=== PATIENT | female | born 1940 | race Caucasian/White ===

== ENCOUNTER 2019-04-05 11:12 | Inpatient (IN) | payer OTHER ==
[~2019-04-05] VITALS: Ht 154.9 cm; Wt 78.5 kg
--- NOTE | 2019-04-05 11:12 | NUR ---
Pt biba [facility] 101 and placed in bed 11.
[2019-04-05 11:18] VITALS: BP 195/85
--- NOTE | 2019-04-05 11:28 | NUR ---
BIBA C/O INTERTTENT PALPITATIONS FOUR DAYS, AND 2 HOURS AGO PT HAD PALPITATION IN [facility]. EKG AT [facility] SHOWED A-FIB, AND THE CENTER CALLED MUD ANALYSIS WELL LOGGING OPERATOR. WHEN THE MUD ANALYSIS WELL LOGGING OPERATOR PRESENTED TO THE SCENE PT TURNED TO NSR. PT IS HYPERTENSIVE WITH NSR AT THIS TIME. PT DENIES SOB, CP, OR DIZZINESS. PT REPORTS HAS NOT SLEPT WELL AND STRESS FOR MONTHS DUE TO TRAVELLING BACK FROM [place]. PATIENT STATES PAIN OF 0/10 AT THIS TIME; VSS; PATIENT POSITIONED FOR COMFORT; HOB ELEVATED; BEDRAILS UP X2; BED DOWN. ER MD MADE AWARE OF PT STATUS.
[2019-04-05] MEDS ORDERED: NACL 0.9% 1,000 ML IV ONE (11:30)
--- NOTE | 2019-04-05 11:49 | NUR ---
electronics engineering technologist at bedside.
[2019-04-05 11:54] LABS: BASOPHILS # (AUTO) 0.1 K/uL (0.00-0.22); BASOPHILS % (AUTO) 1.4 % (0.0-2.0); EOSINOPHILS # (AUTO) 0.1 K/uL (0-0.4); EOSINOPHILS % (AUTO) 1.6 % (0.0-4.0); HEMATOCRIT 40.5 % (36-48); HEMOGLOBIN 13.4 g/dL (12.0-16.0); LYMPHOCYTES # (AUTO) 0.8 K/uL (2.5-16.5); LYMPHOCYTES % (AUTO) 13.2 % (20.5-51.1); MEAN CORPUSCULAR HEMOGLOBIN 31 pg (27-31); MEAN CORPUSCULAR HGB CONC 33 g/dL (33-37); MEAN CORPUSCULAR VOLUME 93.1 fL (80-94); MONOCYTES # (AUTO) 0.4 K/uL (0.8-1.0); MONOCYTES % (AUTO) 7.3 % (1.7-9.3); NEUTROPHILS # (AUTO) 4.6 K/uL (1.8-7.7); NEUTROPHILS % (AUTO) 76.5 % (42.2-75.2); PLATELET COUNT (AUTO) 285 K/uL (140-450); RED BLOOD CELL COUNT(AUTO) 4.35 MIL/uL (4.20-5.40); RED CELL DISTRIBUTION WIDTH 13.1 % (11.6-13.7)
[2019-04-05 12:04] LABS: ANION GAP 16.2 (8-16); CARBON DIOXIDE 24.9 mmol/L (21-32); CHLORIDE 106 mmol/L (98-107); GLUCOSE 98 mg/dL (74-106); POTASSIUM 4.1 mmol/L (3.5-5.1); SODIUM SERUM 143 mmol/L (136-145); UREA NITROGEN, BLOOD 20 mg/dL (7-18)
[2019-04-05 12:08] LABS: PROTHROMBIN TIME 10.2 secs (10.8-13.4)
[2019-04-05 12:19] LABS: ALBUMIN 3.6 g/dL (3.4-5.0); ASPARTATE AMINOTRANSFERASE 20 U/L (15-37); FREE T4 (FREE THYROXINE) 1.34 ng/dL (0.76-1.46); THYROID STIMULATING HORMONE 2.28 uIU/mL (0.34-3.74); TOTAL BILIRUBIN 0.7 mg/dL (0.0-1.0)
[2019-04-05] MEDS ORDERED: SYN.05 PO (12:45)
[2019-04-05] MEDS ORDERED: LISI10TA11 PO (12:47)
[2019-04-05] MEDS ORDERED: ATOR20TA PO (12:48)
[2019-04-05] MEDS ORDERED: LETR2.5T PO (12:49)
[2019-04-05] MEDS ORDERED: ACETAMINOPHEN 325 MG TAB PO PRN (12:50)
[2019-04-05] MEDS ORDERED: MORPHINE SULFATE 2 MG/ML SYR IVP PRN (12:50)
[2019-04-05] MEDS ORDERED: ONDANSETRON 4 MG/2 ML VIAL IM/IVP PRN (12:50)
[2019-04-05] MEDS ORDERED: HYDROcodone/APAP 5/325 MG 1 TAB TAB PO PRN (12:50)
[2019-04-05] MEDS ORDERED: DOCUSATE SODIUM 100 MG GELCAP PO PRN (12:50)
--- NOTE | 2019-04-05 13:04 | NUR ---
Dr. Longoria is evaluating the patient at bedside.
[2019-04-05 13:15] VITALS: BP 161/96
[2019-04-05] MEDS: NACL 0.9% 1,000 ML IV SCH ×2 (13:15→22:46)
--- NOTE | 2019-04-05 13:15 | NUR ---
Received report from ER nurse Jane. Pt is in bed in stable condition. Initial admission process completed. Call light in reach.
--- NOTE | 2019-04-05 13:15 | NUR ---
Patient will be admitted to care of [facility]. Admited to Telemetry. Will go to room 107b. Belongings list completed. Report to INNA Ventura.
[2019-04-05 13:50] LABS: CHOL/HDL RATIO 2.5 (1-4.5); MAGNESIUM 2.1 mg/dL (1.8-2.4); PHOSPHORUS 3.2 mg/dL (2.5-4.9)
[2019-04-05] MEDS ORDERED: METOPROLOL 25 MG TAB PO SCH (14:00)
[2019-04-05] MEDS ORDERED: ALBUTEROL SULFATE/IPRATROPIU 3 ML SOL IH PRN (14:20)
[2019-04-05] MEDS ORDERED: COMMUNICATION ORDER MC PRN (14:45)
--- NOTE | 2019-04-05 15:00 | NUR ---
pt was instructed on giving sputum sample cup is at bedside
[2019-04-05 16:00] VITALS: BP 140/72
--- NOTE | 2019-04-05 16:00 | NUR ---
Pt is in bed instable condition. Family by bedside. Call light in reach.
[2019-04-05] MEDS: LEVOFLOXACIN 750 MG/D5W PREMIX 150 ML IV SCH (17:20)
[2019-04-05 17:55] LABS: BILIRUBIN,URINE NEGATIVE (NEGATIVE); BLOOD, URINE TRACE-L (NEGATIVE); LEUKOCYTE ESTERASE ,URINE TRACE (NEGATIVE); NITRITE, URINE NEGATIVE (NEGATIVE); UGLUCOSE NEGATIVE (NEGATIVE)
--- NOTE | 2019-04-05 19:30 | NUR ---
Shift report given to manufacturing supervisor 2nd shift nurse. Family by bedside. Call light in reach
--- NOTE | 2019-04-05 19:31 | NUR ---
RECD. RESTING IN BED, AWAKE, A/OX4. RESPIRATION EVEN AND UNLABORED. IV OF NS AT 100 ML/HR INFUSING LEFT AC G22. INDEPENDENT, ABLE TO AMBULATE BY HERSELF. PLAN OF CARE FOR THE SHIFT DISCUSSED. VERBALIZED UNDERSTANDING. DENIES CHEST PAIN OR ANY BODY PAINS 0/10. SINUS RHYTHM ON TELE MONITOR.
[2019-04-05 20:00] VITALS: BP 140/63
[2019-04-05 20:13] LABS: APPEARANCE,URINE HAZY (CLEAR)
[2019-04-05] MEDS: CLINDAMYCIN 900 MG in DEXTROSE 5% 100 ML IV SCH (20:27)
--- NOTE | 2019-04-05 21:00 | NUR ---
Patient's Plan of Care was discussed and reviewed with HYDRAULIC JACK MECHANIC: RAFA العراقي
[2019-04-05 21:16] LABS: RBC,URINE 0-5 /HPF (0-5); WBC,URINE 0-5 /HPF (0-5)
[2019-04-05 21:17] LABS: COLOR,URINE STRAW (YELLOW)
[2019-04-05 21:35] VITALS: BP 136/62
[2019-04-05] MEDS: METOPROLOL 25 MG TAB PO SCH (21:35)
--- NOTE | 2019-04-05 21:35 | NUR ---
DUE PO MEDICATIONS GIVEN. BP CHECKED - 136/62, HR - 62. LOPRESSOR 25 MG. PO GIVEN.
[2019-04-05] MEDS: ENOXAPARIN 100 MG/ML SYR SUBQ SCH (21:43)
--- NOTE | 2019-04-05 22:00 | NUR ---
INFORMED PATIENT NEED TO COUGHED OUT PHLEGM FOR SPUTUM TEST. STATED THERE IS NO SPUTUM THAT COMES OUT SHE COUGH.
[2019-04-06] VITALS: BP 121/58
--- NOTE | 2019-04-06 | NUR ---
HR - 51, SINUS ARRHYTHMIA ON TELE MONITOR.
--- NOTE | 2019-04-06 00:56 | NUR ---
HR DROPS TO 42 BUT GOES UP QUICKLY, CHECKED PATIENT, SLEEPING SOUNDLY IN BED. NO APPEARANCE OF DISTRESS NOTED.
--- NOTE | 2019-04-06 02:30 | NUR ---
INFORMED DR. WINSTON PATIENT HR DROPPING DURING SLEEP AND PATIENT STATED SHE DOES NOT TAKE BP MEDICATION DURING THE NIGHT AT HOME.
--- NOTE | 2019-04-06 03:45 | NUR ---
SPECIMEN FOR INFLUENZA A & B SENT TO LAB.
[2019-04-06 04:00] VITALS: BP 159/70
[2019-04-06] MEDS: NACL 0.9% 1,000 ML IV SCH ×2 (04:11→09:15)
[2019-04-06] MEDS: CLINDAMYCIN 900 MG in DEXTROSE 5% 100 ML IV SCH ×3 (04:38→20:18)
[2019-04-06] MEDS: LEVOTHYROXINE 0.05 MG TAB PO SCH (06:37)
--- NOTE | 2019-04-06 06:56 | NUR ---
RESTING COMFORTABLY IN BED, CONDITION REMAIN STABLE. WILL ENDORSE TO AM NURSE FOR CONTINUITY OF CARE.
--- NOTE | 2019-04-06 07:10 | NUR ---
RECEIVED BEDSIDE REPORT FROM BUSINESS MGR NURSE, PT IS AWAKE AND ALERT, NO S/S OF ACUTE DISTRESS OR SOB. NO C/O PAIN. PT ON ROOM AIR, SKIN INTACT. IV SITE L AC 22 G, INFUSING NS 100 ML/HR. PT IS AMBULATORY AND ABLE TO MAKE NEEDS KNOWN. CALL LIGHT IS WITHIN REACH.
[2019-04-06 07:11] LABS: BASOPHILS % (AUTO) 0.5 % (0.0-2.0); EOSINOPHILS # (AUTO) 0.2 K/uL (0-0.4); EOSINOPHILS % (AUTO) 2.7 % (0.0-4.0); HEMATOCRIT 35.6 % (36-48); HEMOGLOBIN 11.9 g/dL (12.0-16.0); LYMPHOCYTES % (AUTO) 16.9 % (20.5-51.1); MEAN CORPUSCULAR HEMOGLOBIN 31 pg (27-31); MEAN CORPUSCULAR HGB CONC 33 g/dL (33-37); MEAN CORPUSCULAR VOLUME 93.1 fL (80-94); MONOCYTES # (AUTO) 0.5 K/uL (0.8-1.0); MONOCYTES % (AUTO) 7.8 % (1.7-9.3); NEUTROPHILS # (AUTO) 4.4 K/uL (1.8-7.7); NEUTROPHILS % (AUTO) 72.1 % (42.2-75.2); PLATELET COUNT (AUTO) 254 K/uL (140-450); RED BLOOD CELL COUNT(AUTO) 3.82 MIL/uL (4.20-5.40); RED CELL DISTRIBUTION WIDTH 13.1 % (11.6-13.7); WHITE BLOOD COUNT (AUTO) 6.1 K/uL (4.8-10.8)
[2019-04-06 08:00] VITALS: BP 164/73
--- NOTE | 2019-04-06 08:22 | NUR ---
PATIENT HAS BEEN SCREENED AND CATEGORIZED MODERATE NUTRITION RISK. PATIENT WILL BE SEEN WITHIN 3-5 DAYS OF ADMISSION. 04/08/19 04/10/[address]
[2019-04-06] MEDS: ENOXAPARIN 100 MG/ML SYR SUBQ SCH (09:00)
[2019-04-06] MEDS ORDERED: LISINOPRIL 10 MG TAB PO SCH (09:00)
[2019-04-06 09:08] LABS: ANION GAP 13.2 (8-16); CARBON DIOXIDE 25.2 mmol/L (21-32); CHLORIDE 104 mmol/L (98-107); CREATININE 1.1 mg/dL (0.6-1.3); GLUCOSE 127 mg/dL (74-106); POTASSIUM 4.4 mmol/L (3.5-5.1); SODIUM SERUM 138 mmol/L (136-145); UREA NITROGEN, BLOOD 22 mg/dL (7-18)
[2019-04-06] MEDS: ATORVASTATIN 20 MG TAB PO SCH (09:12)
[2019-04-06] MEDS: METOPROLOL 25 MG TAB PO SCH ×2 (09:12→20:22)
--- NOTE | 2019-04-06 09:18 | NUR ---
AM MEDS ADMINISTERED. PT TOLERATED WELL. SUBQ LOVENOX NOT AVAILABLE IN THE [facility] AT THIS TIME, WILL ADMINISTER WHEN IT IS AVAILABLE.
[2019-04-06 09:57] LABS: MAGNESIUM 1.9 mg/dL (1.8-2.4); PHOSPHORUS 3.7 mg/dL (2.5-4.9)
--- NOTE | 2019-04-06 11:11 | NUR ---
GOT A CALL FROM PHARMACY, WE DO NOT CARRY LETROZOLE TABS (PT TAKES IT FOR BREAST CANCER). ASKED IF PT COULD PROVIDE HER OWN MED. PT HAS A CARD OF LETROZOLE AT HER BEDSIDE WITH JUST ONE PILL INSIDE. SHE SAID SHE ALREADY TOOK ONE DOSE THIS AM. I TOOK THE MED CARD TO THE PHARMACY TO DISPENSE MED STARTING TOMORROW. PT TAKES ONE 2.5 MG LETROZOLE TABLET PER DAY.
--- NOTE | 2019-04-06 11:12 | NUR ---
DISCHARGE PLANNIN78 YEAR OLD FEMALE PATIENT FROM HOME, WHO CAME IN DUE TO PALPITATIONS X5 DAYS. PAST MEDICAL HISTORY INCLUDE BREAST CA TREATED WITH RADIOTHERAPY 2 YRS AGO, MALIGNANT CON POLYPS RESECTED 13 YRS AGO, HTN, HDL AND HYPOTHYROIDISM. INITIAL DIAGNOSIS OF NEW ONSET A FIB. ON ROOM AIR. CXR SHOWED MILD LEFT BASILAR ATELECTASIS VS INFILTRATES. ON LEVOFLOXACIN AND CLINDAMYCIN IV. CARDIO CONSULT WITH DR. Federico ALTAMIRANO FOR NEW ONSET AFIB. DC PLANNING PENDING PATIENT'S RESPONSE TO TREATMENT.
[2019-04-06 12:00] VITALS: BP 149/92
[2019-04-06] MEDS ORDERED: LETROZOLE 2.5MG TAB PO SCH ×2 (13:00→18:00)
[2019-04-06] MEDS ORDERED: APIX5TAB PO (15:47)
[2019-04-06] MEDS ORDERED: RIVA20TA PO (15:47)
[2019-04-06 16:00] VITALS: BP 170/65
--- NOTE | 2019-04-06 16:30 | NUR ---
PT'S BP IS 170/68 AT THIS TIME, DR AKINS IS AWARE AND WILL CHANGE MED ORDERS.
--- NOTE | 2019-04-06 16:45 | NUR ---
DR AKINS CHANGED PT'S IVF FLUID RATE TO 20 ML/HR TO SEE IF IT WILL CHANGE HER BP. WILL REASSESS BP IN AN HOUR, AND IF STILL ABOVE 170 SBP, WILL ADMINISTER NEWLY ORDERED PRN IV VASOTEC.
[2019-04-06] MEDS: LEVOFLOXACIN 750 MG/D5W PREMIX 150 ML IV SCH (17:42)
--- NOTE | 2019-04-06 18:12 | NUR ---
PT SEEN BY DR ALTAMIRANO
[2019-04-06] MEDS: ENALAPRILAT 2.5 MG/2 ML VIAL IVP PRN ×2 (18:24→23:54)
--- NOTE | 2019-04-06 18:30 | NUR ---
VASOTEC IV PRN GIVEN FOR ELEVATED BP 179/66. WILL ENDORSE TO COOLING PIPE INSPECTOR AND REASSESS WITHIN AN HOUR
--- NOTE | 2019-04-06 19:07 | NUR ---
BP DOWN TO 158/60 AT THIS TIME. ENDORSED TO LIPCOAT SPRAYER NURSE WILFREDO. PT IN STABLE CONDITION.
--- NOTE | 2019-04-06 19:08 | NUR ---
RECEIVED PT ON BED, AAOX4, ABLE TO MAKE NEEDS KNOWN, DENIES ANY PAIN, NO SOB NOTED, LEVAQUIN IVPB INFUSING WELL, PLAN OF CARE DISCUSSED, SAFETY MEASURES IN PLACE, CALL LIGHT WITHIN REACH.
[2019-04-06 20:00] VITALS: BP 163/63
[2019-04-06] MEDS: LISINOPRIL 10 MG TAB PO SCH (20:22)
--- NOTE | 2019-04-06 20:25 | NUR ---
HR OF 52 BPM, DR SHEA MADE AWARE AND STATED OK TO HOLD METOPROLOL FOR NOW, OTHER MEDS ADMINISTERED, ALL NEEDS ATTENDED.
[2019-04-06] MEDS ORDERED: APIXABAN 2.5 MG TAB PO SCH (21:00)
--- NOTE | 2019-04-06 21:40 | NUR ---
PT AMBULATED TO BR WITH STEADY GAIT, VOIDED FREELY, MONITORED CLOSELY.
[2019-04-07] VITALS: BP 172/65
--- NOTE | 2019-04-07 | NUR ---
PT SLEEPING, EASILY AROUSABLE, VITAL SIGNS TAKEN, BP-172/65, HR-63, ASYMPTOMATIC, DENIES ANY PAIN, NO SOB NOTED, VASOTEC IVP GIVEN FOR SBP ABOVE 160, WILL REASSES BP IN ONE HOUR, IVF INFUSING WELL, CONTINUE TO MONITOR CLOSELY.
--- NOTE | 2019-04-07 01:20 | NUR ---
BP RECHECKED- 164/68, HR-70, TRENDING DOWN, DENIES ANY PAIN, NO SOB NOTED, MONITORED CLOSELY.
[2019-04-07] MEDS: NACL 0.9% 1,000 ML IV SCH (02:30)
[2019-04-07 04:00] VITALS: BP 174/74
--- NOTE | 2019-04-07 04:18 | NUR ---
PT SLEEPING, EASILY AROUSABLE, VITAL SIGNS TAKEN BP-174/74, HR-65, PT ASYMPTOMATIC, DENIES PAIN OR SOB, DR SHEA MADE AWARE, WITH NEW ORDERS, HCTZ TABLET AND APRESOLINE IVP ADMINISTERED WITH EDUCATION PROVIDED, WILL RECHECK BP IN AN HOUR, MONITORED CLOSELY.
[2019-04-07] MEDS: CLINDAMYCIN 900 MG in DEXTROSE 5% 100 ML IV SCH (04:19)
[2019-04-07] MEDS ORDERED: hydrALAZINE 20 MG/ML VIAL IVP SCH (04:30)
[2019-04-07] MEDS ORDERED: HYDROCHLOROTHIAZIDE 25 MG TAB PO SCH ×2 (04:30→09:00)
--- NOTE | 2019-04-07 05:19 | NUR ---
BP RECHECKED 159/73, HR-75, DENIES CHEST PAIN OR SOB, MONITORED CLOSELY.
[2019-04-07] MEDS: LEVOTHYROXINE 0.05 MG TAB PO SCH (05:54)
[2019-04-07 07:16] LABS: BASOPHILS % (AUTO) 0.5 % (0.0-2.0); EOSINOPHILS # (AUTO) 0.1 K/uL (0-0.4); EOSINOPHILS % (AUTO) 1.7 % (0.0-4.0); HEMATOCRIT 37.9 % (36-48); HEMOGLOBIN 12.7 g/dL (12.0-16.0); LYMPHOCYTES # (AUTO) 0.8 K/uL (2.5-16.5); LYMPHOCYTES % (AUTO) 11.4 % (20.5-51.1); MEAN CORPUSCULAR HEMOGLOBIN 31 pg (27-31); MEAN CORPUSCULAR HGB CONC 34 g/dL (33-37); MEAN CORPUSCULAR VOLUME 92.1 fL (80-94); MONOCYTES # (AUTO) 0.5 K/uL (0.8-1.0); MONOCYTES % (AUTO) 7.1 % (1.7-9.3); NEUTROPHILS # (AUTO) 5.7 K/uL (1.8-7.7); NEUTROPHILS % (AUTO) 79.3 % (42.2-75.2); PLATELET COUNT (AUTO) 262 K/uL (140-450); RED BLOOD CELL COUNT(AUTO) 4.11 MIL/uL (4.20-5.40); RED CELL DISTRIBUTION WIDTH 13.1 % (11.6-13.7); WHITE BLOOD COUNT (AUTO) 7.3 K/uL (4.8-10.8)
--- NOTE | 2019-04-07 07:20 | NUR ---
RECEIVED REPORT FROM GEM TECHNICIAN NURSE WILFREDO. PT AAOX4, NO C/O PAIN AT THIS TIME. IV ON LT AC 22 GA RUNNING IVF PER ORDER. RESPIRATIONS EVEN AND UNLABORED ON RA. ABD SOFT, ACTIVE BS. SKIN IS INTACT, WARM TO TOUCH. PT IS AMBULATORY, SAFETY MEASURES IN PLACE, CALL LIGHT WITHIN REACH.
--- NOTE | 2019-04-07 07:22 | NUR ---
PT AWAKE, NO SIGNS OF DISTRESS, REPORT GIVEN TO INNA CAMACHO FOR CONTINUITY OF CARE.
[2019-04-07] MEDS: METOPROLOL 25 MG TAB PO SCH (07:53)
[2019-04-07] MEDS: LISINOPRIL 10 MG TAB PO SCH (07:54)
[2019-04-07] MEDS: ATORVASTATIN 20 MG TAB PO SCH (07:54)
--- NOTE | 2019-04-07 07:54 | NUR ---
PT'S BLOOD PRESSURE 162/69, HR 73, ADMINISTERED MORNING MEDICATIONS PER ORDER, PT VERBALIZES UNDERSTANDING OF INDICATIONS AND POTENTIAL SIDE EFFECTS.
[2019-04-07 08:00] VITALS: BP 162/69
[2019-04-07 08:29] LABS: ANION GAP 13.3 (8-16); CARBON DIOXIDE 25.8 mmol/L (21-32); CHLORIDE 101 mmol/L (98-107); GLUCOSE 107 mg/dL (74-106); POTASSIUM 4.1 mmol/L (3.5-5.1); SODIUM SERUM 136 mmol/L (136-145)
[2019-04-07 08:30] LABS: UREA NITROGEN, BLOOD 13 mg/dL (7-18)
[2019-04-07 08:35] LABS: MAGNESIUM 1.8 mg/dL (1.8-2.4); PHOSPHORUS 3.2 mg/dL (2.5-4.9)
[2019-04-07] MEDS ORDERED: amLODIPine 5 MG TAB PO SCH (09:00)
[2019-04-07] MEDS ORDERED: LETROZOLE 2.5MG TAB PO SCH (09:00)
--- NOTE | 2019-04-07 09:00 | NUR ---
BLOOD PRESSURE AT 154/63, HR 84, PT HAS NO S/S OF HYPERTENSION. WILL CONTINUE TO MONITOR.
[2019-04-07] MEDS ORDERED: PNEUMOCOCCAL VACCINE 23 MCG/0.5 ML VIAL IMVAC SCH (09:05)
[2019-04-07] MEDS ORDERED: CLIN300C2 PO (09:06)
[2019-04-07] MEDS ORDERED: METO25TA PO (09:06)
[2019-04-07] MEDS ORDERED: LISI10TA11 PO ×2 (09:06→09:20)
[2019-04-07] MEDS ORDERED: LEVO750T2 PO (09:06)
[2019-04-07] MEDS ORDERED: ORE25 PO (09:06)
[2019-04-07] MEDS ORDERED: AMLO5TAB6 PO (09:06)
--- NOTE | 2019-04-07 10:05 | NUR ---
ADMINISTERED PNA VACCINE TO LEFT DELTOID, PT TOLERATED WELL. PER PT, RECEIVED PNA VACCINE MORE THAN 5 YEARS AGO AND HAD NO REACTIONS TO IT. WILL CONTINUE TO MONITOR.
--- NOTE | 2019-04-07 11:45 | NUR ---
PER JOSE ROCK TO DISCONTINUE IV AT THIS TIME AND HOLD ANY IV ABX. IV ON LT AC 22 GA DISCONTINUED WITH CANNULA INTACT, NO ACTIVE BLEEDING NOTED, APPLIED PRESSURE TO AREA.
[2019-04-07 12:00] VITALS: BP 149/64
[2019-04-07] MEDS ORDERED: APIX5TAB PO ×2 (12:13→12:54)
--- NOTE | 2019-04-07 14:10 | NUR ---
PT HAS BEEN DISCHARGED. ALL PAPERWORK SIGNED, ALL QUESTIONS ANSWERED. ALL BELONGINGS AND TRAVEL NOTE IN PT POSSESSION. TRAVEL NOTE FAXED TO INSURANCE FAX# . ALSO NOTIFIED PT AND SON/LISA THAT DR. ALTAMIRANO'S OFFICE IN [place], [place] IS AWARE OF DISCHARGE MEDICATIONS FOR PICK-UP BY PT/FAMILY. IV DISCONTINUED WITH CANNULA INTACT, NO ACTIVE BLEEDING NOTED, APPLIED PRESSURE TO AREA. PT REFUSED WHEELCHAIR, AMBULATING OUT OF UNIT WITH FAMILY AT SIDE. PT IN STABLE CONDITION.
== END 2019-04-07 14:10 | disposition home or self-care (01) | DRG 308 ==
LOC: MED 11:12 → MTU 12:50
PROVIDERS: ADMIT General Practice; ATTEND General Practice
PROC: 3E0234Z Introduction of Serum, Toxoid and Vaccine into Muscle, Percutaneous Approach (ICD-10-PCS; principal; 2019-04-07)
DX: I48.0 Paroxysmal atrial fibrillation (principal); J69.0 Pneumonitis due to inhalation of food and vomit; I16.0 Hypertensive urgency; E03.9 Hypothyroidism, unspecified; E78.5 Hyperlipidemia, unspecified; C50.912 Malignant neoplasm of unspecified site of left female breast; I10 Essential (primary) hypertension; E78.00 Pure hypercholesterolemia, unspecified; Z92.3 Personal history of irradiation; Z88.1 Allergy status to other antibiotic agents; Z88.0 Allergy status to penicillin; Z79.899 Other long term (current) drug therapy; Z90.710 Acquired absence of both cervix and uterus; Z86.010 Personal history of colon polyps; Z82.49 Family history of ischemic heart disease and other diseases of the circulatory system; Z23 Encounter for immunization
CPT/HCPCS: 36415; 71045; 80048; 80053; 81001; 82150; 83036; 83605; 83690; 83735; 83880; 84100; 84439; 84443; 84484; 85025; 85610; 85730; 87081; 87804; 90732; 93005; J0360; J1650; J1956; J3490; J7030; J7060; Q0092